=== PATIENT | female | born 1990 | race Caucasian/White ===

== ENCOUNTER 2024-03-17 14:53 | Emergency (ER) | payer SELFPAY ==
[~2024-03-17] VITALS: Ht 165.1 cm; Wt 104.3 kg
[2024-03-17] MEDS ORDERED: ONDANSETRON 4 MG/2 ML VIAL ONE (18:14)
[2024-03-17] MEDS ORDERED: HYDROMORPHONE 1 MG/1 ML DISP.SYRIN ONE (18:15)
[2024-03-17] MEDS: ONDANSETRON 4 MG/2 ML VIAL IV ONE (18:36)
[2024-03-17] MEDS: HYDROMORPHONE 1 MG/1 ML DISP.SYRIN IV ONE (18:36)
[2024-03-17 18:47] LABS: CALCIUM 8.9 mg/dL (8.5-10.1); POTASSIUM 4.1 mmol/L (3.5-5.1)
[2024-03-17 18:49] LABS: BASOPHILS # (AUTO) 0.1 K/UL (0.0-0.2); BASOPHILS % (AUTO) 1.1 % (0.0-2.0); EOSINOPHILS # (AUTO) 0.5 K/uL (0.0-0.7); EOSINOPHILS % (AUTO) 6.4 % (0.0-7.0); HEMATOCRIT 37.1 % (31.2-41.9); HEMOGLOBIN 12.7 g/dL (10.9-14.3); LYMPHOCYTES # (AUTO) 2.1 K/uL (0.8-4.8); MEAN CORPUSCULAR HGB CONC 34 g/dL (32.3-35.6); MEAN CORPUSCULAR VOLUME 87.6 fL (75.5-95.3); MONOCYTES # (AUTO) 0.3 K/uL (0.1-1.30); MONOCYTES % (AUTO) 3.7 % (0.0-11.0); NEUTROPHILS # (AUTO) 5.6 K/uL (1.8-8.9); NEUTROPHILS % (AUTO) 64.8 % (38.5-71.5); PLATELET COUNT (AUTO) 195 K/uL (179-408); RED BLOOD CELL COUNT(AUTO) 4.23 MIL/uL (3.63-4.92); RED CELL DISTRIBUTION WIDTH 14.8 % (12.3-17.7); WHITE BLOOD COUNT (AUTO) 8.6 K/uL (3.8-11.8)
[2024-03-17 18:53] LABS: ALBUMIN 3.7 g/dL (3.4-5.0); BILIRUBIN,DIRECT 0.1 mg/dL (0.0-0.2); BILIRUBIN,TOTAL 0.5 mg/dL (0.2-1.0); TOTAL PROTEIN, SERUM 7.9 g/dL (6.4-8.2)
[2024-03-17 19:00] LABS: *BLOOD, URINE 2+ (NEGATIVE); *CLARITY,URINE SLIGHTLY CLOUDY (CLEAR); *COLOR,URINE YELLOW (YELLOW); *KETONES,URINE TRACE (NEGATIVE); *PROTEIN,URINE TRACE (NEGATIVE); *UROBILINOGEN,URINE 0.2 E.U./dl (NORMAL); LEUKOCYTE ESTERASE ,URINE NEGATIVE (NEGATIVE); NITRITE, URINE NEGATIVE (NEGATIVE); PH,URINE 5.5 (5.0-8.0); UGLUCOSE NEGATIVE (NEGATIVE)
[2024-03-17 19:02] LABS: *BILIRUBIN,URIN 1+ (NEGATIVE)
[2024-03-17 19:11] LABS: BACTERIA,URINE MODERATE /HPF (NONE SEEN); SQUAMOUS EPITHELIAL CELL,UR MODERATE /HPF (NONE SEEN); WBC,URINE 0-3 /HPF (0-3)
[2024-03-17 19:12] LABS: MUCUS,URINE MODERATE /LPF (0-FEW)
[2024-03-17 19:13] LABS: RBC,URINE 20-50 /HPF (0-3)
[2024-03-17] MEDS: KETOROLAC TROMETHAMINE 30 MG INJ IM ONE (20:10)
[2024-03-17] MEDS ORDERED: CEPH500C2 PO (21:18)
[2024-03-17] MEDS ORDERED: TAMS-3 PO (21:18)
[2024-03-17] MEDS ORDERED: OXYC-128 PO (21:18)
[2024-03-17] MEDS: CEphaleXIN 500 MG CAPSULE PO ONE (21:30)
[2024-03-17 22:17] VITALS: BP 149/95; O2SAT 98
== END 2024-03-17 21:40 | disposition home or self-care (01) ==
LOC: ER 14:54
DX: N20.0 Calculus of kidney (principal); N39.0 Urinary tract infection, site not specified; R10.32 Left lower quadrant pain; Z79.899 Other long term (current) drug therapy; Z88.0 Allergy status to penicillin; Z88.2 Allergy status to sulfonamides; Z88.5 Allergy status to narcotic agent
CPT/HCPCS: 99285; 74176; 96374; 71045; 96375; 80076; 80048; 81001; 83690; 85025; 84702; 36415; 96372; 87086; J1885; J2405; J1170; A4606; A4663